=== PATIENT | male | born 1985 | race Caucasian/White ===

== ENCOUNTER 2017-09-04 05:27 | Emergency (ER) | payer MEDICAID ==
[~2017-09-04] VITALS: Ht 165.1 cm; Wt 57.5 kg
[2017-09-04 05:28] VITALS: BP 133/92
[2017-09-04] MEDS ORDERED: KETOROLAC 30 MG/1 ML ONE (05:57)
[2017-09-04] MEDS ORDERED: KETOROLAC 30 MG/1 ML IM ONE (06:00)
[2017-09-04] MEDS ORDERED: BACITRACIN ZINC OINT 500U/GM, 0.9 GM ONE ×2 (06:47→07:29)
== END 2017-09-04 07:35 | disposition home or self-care (01) ==
LOC: ED 06:00
DX: S62.323A Displaced fracture of shaft of third metacarpal bone, left hand, initial encounter for closed fracture (principal); W19.XXXA Unspecified fall, initial encounter; Y93.01 Activity, walking, marching and hiking; Y92.009 Unspecified place in unspecified non-institutional (private) residence as the place of occurrence of the external cause; Y99.8 Other external cause status
CPT/HCPCS: 29125; 73130; 96372; 99284; J1885

== ENCOUNTER 2017-10-20 14:25 | Emergency (ER) | payer MEDICAID ==
[~2017-10-20] VITALS: Ht 165.1 cm; Wt 53.2 kg
[2017-10-20 14:32] VITALS: BP 137/88
[2017-10-20] MEDS ORDERED: KETOROLAC 30 MG/1 ML IM ONE (15:30)
[2017-10-20] MEDS ORDERED: KETOROLAC 30 MG/1 ML ONE (15:38)
== END 2017-10-20 17:45 | disposition home or self-care (01) ==
LOC: ED 16:33
DX: S22.42XA Multiple fractures of ribs, left side, initial encounter for closed fracture (principal); F17.200 Nicotine dependence, unspecified, uncomplicated; Y04.0XXA Assault by unarmed brawl or fight, initial encounter; Y93.89 Activity, other specified; Y92.89 Other specified places as the place of occurrence of the external cause; Y99.8 Other external cause status
CPT/HCPCS: 71101; 93005; 96372; 99284; J1885

== ENCOUNTER 2017-10-23 01:13 | Emergency (ER) | payer MEDICAID ==
[~2017-10-23] VITALS: Ht 165.1 cm; Wt 55.0 kg
[2017-10-23 01:13] VITALS: BP 142/99
[2017-10-23] MEDS ORDERED: LIDOCAINE 1%, 20ML INFIL ONE (02:00)
[2017-10-23] MEDS ORDERED: LIDOCAINE 1%, 10ML ONE (02:19)
== END 2017-10-23 03:49 | disposition home or self-care (01) ==
LOC: ED 01:59
PROC: 0HQ1XZZ Repair Face Skin, External Approach (ICD-10-PCS; principal; 2017-10-23)
DX: S02.2XXA Fracture of nasal bones, initial encounter for closed fracture (principal); S01.81XA Laceration without foreign body of other part of head, initial encounter; S00.03XA Contusion of scalp, initial encounter; J32.9 Chronic sinusitis, unspecified; Y08.89XA Assault by other specified means, initial encounter; Y93.89 Activity, other specified; Y99.8 Other external cause status; Y92.89 Other specified places as the place of occurrence of the external cause
CPT/HCPCS: 12013; 70450; 70486; 99284

== ENCOUNTER 2017-10-29 01:42 | Emergency (ER) | payer MEDICAID | END 2017-10-29 01:54 | disposition left against medical advice (07) | LOC: ED 01:52 | DX: R51 Headache (principal); Z53.21 Procedure and treatment not carried out due to patient leaving prior to being seen by health care provider ==

== ENCOUNTER 2017-11-27 20:12 | Emergency (ER) | payer MEDICAID ==
[~2017-11-27] VITALS: Ht 165.1 cm; Wt 60.0 kg
[2017-11-27] MEDS ORDERED: SODIUM CHLORIDE FLUSH 10ML SYR IVF ONE (21:00)
[2017-11-27] MEDS ORDERED: SODIUM CHLORIDE 0.9% 1,000ML IVBOLUS ONE (21:00)
[2017-11-27 21:17] LABS: BASOPHILS # (AUTO) 0.01 x10^3/uL (0-0.1); BASOPHILS % (AUTO) 0 % (0-1); EOSINOPHILS # (AUTO) 0.01 x10^3/uL (0-0.4); EOSINOPHILS % (AUTO) 0 % (1-7); LYMPHOCYTES # (AUTO) 1.09 x10^3/uL (1-3.4); LYMPHOCYTES % (AUTO) 11 % (22-44); MD NO; MEAN CORPUSCULAR HEMOGLOBIN 28.9 pg (27.5-34.5); MEAN CORPUSCULAR HGB CONC 33.8 g/dL (33.2-36.2); MEAN CORPUSCULAR VOLUME 85.6 fL (81-97); MEAN PLATELET VOLUME 6.5 fL (7.4-10.4); MONOCYTES # (AUTO) 0.52 x10^3/uL (0.2-0.8); MONOCYTES % (AUTO) 5 % (2-9); NEUTROPHILS # (AUTO) 8.39 x10^3/uL (1.8-6.8); NEUTROPHILS % (AUTO) 84 % (42-75); PLATELET COUNT 280 x10^3/uL (130-400); RED BLOOD COUNT 4.03 x10^6/uL (4.38-5.82); RED CELL DISTRIBUTION WIDTH 15.4 % (9.4-14.8)
[2017-11-27 21:28] LABS: ALANINE AMINOTRANSFERASE 44 U/L (12-78); ALBUMIN 3.2 g/dL (3.4-5.0); ANION GAP 9 mmol/L (5-15); CALCIUM 7.2 mg/dL (8.5-10.1); CHLORIDE 107 mmol/L (98-107); CREATININE 0.55 mg/dL (0.7-1.3)
[2017-11-27 21:31] LABS: ALKALINE PHOSPHATASE 116 U/L (45-117); BILIRUBIN,TOTAL 0.3 mg/dL (0.2-1.0); TOTAL PROTEIN 6.5 g/dL (6.4-8.2)
[2017-11-27 22:13] VITALS: BP 107/71
== END 2017-11-27 23:00 | disposition home or self-care (01) ==
LOC: ED 22:04
DX: F10.129 Alcohol abuse with intoxication, unspecified (principal); F19.10 Other psychoactive substance abuse, uncomplicated; F41.9 Anxiety disorder, unspecified
CPT/HCPCS: 36415; 71045; 80053; 80307; 85025; 96360; 96361; 99285; J7030

== ENCOUNTER 2018-03-22 18:26 | Emergency (ER) | payer MEDICAID ==
[~2018-03-22] VITALS: Ht 165.1 cm; Wt 53.3 kg
[2018-03-22 19:22] LABS: MICROSCOPIC INDICATED
[2018-03-22 19:23] LABS: CULTURE INDICATED? YES
[2018-03-22] MEDS ORDERED: HYDROcodone/APAP 5/325 TABLET ONE (19:28)
[2018-03-22] MEDS ORDERED: HYDROcodone/APAP 5/325 TABLET PO ONE (19:30)
[2018-03-22] MEDS ORDERED: AZITHROMYCIN 500 MG TABLET PO ONE (19:30)
[2018-03-22] MEDS ORDERED: CEFTRIAXONE 250 MG IM ONE (19:30)
[2018-03-22] MEDS ORDERED: CEFTRIAXONE 250 MG ONE (19:34)
[2018-03-22] MEDS ORDERED: AZITHROMYCIN 500 MG TABLET ONE (19:34)
[2018-03-22 20:44] VITALS: BP 136/89
== END 2018-03-22 20:48 | disposition home or self-care (01) ==
LOC: ED 20:42
DX: N34.2 Other urethritis (principal); N30.00 Acute cystitis without hematuria
CPT/HCPCS: 81001; 87086; 87491; 87591; 96372; 99284; J0696

== ENCOUNTER 2018-03-25 15:48 | Emergency (ER) | payer MEDICAID ==
[~2018-03-25] VITALS: Ht 165.1 cm; Wt 54.5 kg
[2018-03-25 16:03] VITALS: BP 120/88
== END 2018-03-25 16:14 | disposition home or self-care (01) ==
LOC: ED 16:08
DX: Z76.0 Encounter for issue of repeat prescription (principal)
CPT/HCPCS: 99283

== ENCOUNTER 2018-04-09 22:05 | Emergency (ER) | payer MEDICAID ==
[~2018-04-09] VITALS: Ht 165.1 cm; Wt 53.8 kg
[2018-04-09 22:07] VITALS: BP 138/80
== END 2018-04-10 00:38 | disposition home or self-care (01) ==
LOC: ED 22:50
DX: G89.11 Acute pain due to trauma (principal); R07.81 Pleurodynia; F19.10 Other psychoactive substance abuse, uncomplicated; F15.10 Other stimulant abuse, uncomplicated; F17.200 Nicotine dependence, unspecified, uncomplicated; Y04.8XXA Assault by other bodily force, initial encounter; Y93.89 Activity, other specified; Y99.8 Other external cause status; Y92.410 Unspecified street and highway as the place of occurrence of the external cause
CPT/HCPCS: 71046; 99284

== ENCOUNTER 2018-05-08 13:28 | Emergency (ER) | payer MEDICAID ==
[~2018-05-08] VITALS: Ht 152.4 cm; Wt 60.0 kg
[2018-05-08 13:28] VITALS: BP 133/77
== END 2018-05-08 14:41 | disposition home or self-care (01) ==
LOC: ED 14:35
DX: S01.21XA Laceration without foreign body of nose, initial encounter (principal); X58.XXXA Exposure to other specified factors, initial encounter; Y93.89 Activity, other specified; Y92.410 Unspecified street and highway as the place of occurrence of the external cause; Y99.8 Other external cause status
CPT/HCPCS: 12011; 99283

== ENCOUNTER 2018-05-16 03:30 | Emergency (ER) | payer MEDICAID ==
[~2018-05-16] VITALS: Ht 165.1 cm; Wt 55.0 kg
[2018-05-16] MEDS ORDERED: LORazepam 1MG TABLET ONE (04:29)
[2018-05-16] MEDS ORDERED: LORazepam 1MG TABLET PO ONE (04:30)
[2018-05-16 05:22] VITALS: BP 105/71
== END 2018-05-16 05:25 | disposition home or self-care (01) ==
LOC: ED 04:35
DX: H10.213 Acute toxic conjunctivitis, bilateral (principal)
CPT/HCPCS: 99282

== ENCOUNTER 2018-07-20 06:05 | Emergency (ER) | payer MEDICAID ==
[~2018-07-20] VITALS: Ht 165.1 cm; Wt 57.1 kg
[2018-07-20] MEDS ORDERED: SODIUM CHLORIDE FLUSH 10ML SYR IVF ONE (08:30)
[2018-07-20] MEDS ORDERED: PROPARACAINE OPHTH 0.5%, 15ML ONE (10:41)
[2018-07-20] MEDS ORDERED: FLUORESCEIN/BENOXINATE 5 ML DROPS OP ONE (11:00)
[2018-07-20] MEDS ORDERED: PROPARACAINE OPHTH 0.5%, 15ML EACHEYE ONE (11:00)
[2018-07-20 12:18] VITALS: BP 130/92
== END 2018-07-20 12:20 | disposition home or self-care (01) ==
LOC: ED 11:48
DX: S02.32XA Fracture of orbital floor, left side, initial encounter for closed fracture (principal); S02.40FA Zygomatic fracture, left side, initial encounter for closed fracture; F12.10 Cannabis abuse, uncomplicated; F15.929 Other stimulant use, unspecified with intoxication, unspecified; Z72.9 Problem related to lifestyle, unspecified; F17.210 Nicotine dependence, cigarettes, uncomplicated; Y04.0XXA Assault by unarmed brawl or fight, initial encounter; Y93.89 Activity, other specified; Y92.410 Unspecified street and highway as the place of occurrence of the external cause; Y99.8 Other external cause status
CPT/HCPCS: 70486; 99284

== ENCOUNTER 2018-07-27 05:58 | Emergency (ER) | payer MEDICAID ==
[~2018-07-27] VITALS: Ht 165.1 cm; Wt 58.7 kg
[2018-07-27 06:01] VITALS: BP 141/80
== END 2018-07-27 07:17 | disposition home or self-care (01) ==
LOC: ED 06:23
DX: S02.32XA Fracture of orbital floor, left side, initial encounter for closed fracture (principal); S02.40DA Maxillary fracture, left side, initial encounter for closed fracture; Y08.89XA Assault by other specified means, initial encounter; Y93.89 Activity, other specified; Y92.89 Other specified places as the place of occurrence of the external cause; Y99.8 Other external cause status
CPT/HCPCS: 99282

== ENCOUNTER 2018-12-20 21:51 | Emergency (ER) | payer MEDICAID ==
[~2018-12-20] VITALS: Ht 165.1 cm; Wt 57.2 kg
[2018-12-20 21:54] VITALS: BP 141/99
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
[2018-12-20] MEDS ORDERED: LIDOCAINE-MPF 1%, 5ML ONE (22:10)
--- NOTE | 2018-12-20 22:12 | NUR ---
WOUND IRRIGATED, SUTURE SET UP AT BEDSIDE.
[2018-12-20] MEDS ORDERED: DIPH,PERTUSS(ACELL),TET VAC/PF 0.5 ML IM-VACC ONE ×2 (23:24→23:30)
[2018-12-20] MEDS ORDERED: BACITRACIN ZINC OINT 500U/GM, 0.9 GM ONE (23:24)
--- NOTE | 2018-12-20 23:27 | NUR ---
pt refused teatnus booster, reports having one 3 years ago
[2018-12-20] MEDS ORDERED: LIDOCAINE-MPF 1%, 5ML INFIL ONE (23:30)
== END 2018-12-21 01:10 | disposition home or self-care (01) ==
LOC: ED 12-21 00:03
DX: S02.2XXA Fracture of nasal bones, initial encounter for closed fracture (principal); S01.112A Laceration without foreign body of left eyelid and periocular area, initial encounter; Y00.XXXA Assault by blunt object, initial encounter; Y93.89 Activity, other specified; Y92.410 Unspecified street and highway as the place of occurrence of the external cause; Y99.8 Other external cause status
CPT/HCPCS: 12051; 70486; 99284

== ENCOUNTER 2020-02-13 09:55 | Emergency (ER) | payer MEDICAID, SELFPAY ==
[~2020-02-13] VITALS: Ht 165.1 cm; Wt 59.6 kg
--- NOTE | 2020-02-13 10:01 | NUR ---
EKG AT BEDSIDE
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
[2020-02-13] MEDS ORDERED: ACETAMINOPHEN 500 MG TABLET ONE (10:29)
[2020-02-13] MEDS ORDERED: SODIUM CHLORIDE 0.9% 1,000ML IVBOLUS ONE ×2 (10:30→12:30)
[2020-02-13] MEDS ORDERED: ACETAMINOPHEN 500 MG TABLET PO ONE (10:30)
[2020-02-13] MEDS ORDERED: SODIUM CHLORIDE FLUSH 10ML SYR IVF ONE (10:30)
[2020-02-13 10:39] LABS: BASOPHILS # (AUTO) 0.05 x10^3/uL (0-0.1); BASOPHILS % (AUTO) 0 % (0-1); EOSINOPHILS # (AUTO) 0.02 x10^3/uL (0-0.4); EOSINOPHILS % (AUTO) 0 % (1-7); LYMPHOCYTES # (AUTO) 0.71 x10^3/uL (1-3.4); LYMPHOCYTES % (AUTO) 6 % (22-44); MD NO; MEAN CORPUSCULAR HEMOGLOBIN 29.2 pg (27.5-34.5); MEAN CORPUSCULAR HGB CONC 33.4 g/dL (33.2-36.2); MEAN CORPUSCULAR VOLUME 87.5 fL (81-97); MEAN PLATELET VOLUME 6.3 fL (7.4-10.4); MONOCYTES # (AUTO) 0.65 x10^3/uL (0.2-0.8); MONOCYTES % (AUTO) 6 % (2-9); NEUTROPHILS # (AUTO) 9.75 x10^3/uL (1.8-6.8); NEUTROPHILS % (AUTO) 87 % (42-75); PLATELET COUNT 290 x10^3/uL (130-400); RED BLOOD COUNT 4.71 x10^6/uL (4.38-5.82); RED CELL DISTRIBUTION WIDTH 14.4 % (9.4-14.8)
[2020-02-13 10:52] LABS: ALANINE AMINOTRANSFERASE 19 U/L (12-78); ALBUMIN 3.6 g/dL (3.4-5.0); ANION GAP 7 mmol/L (5-15); CALCIUM 8.5 mg/dL (8.5-10.1); CHLORIDE 100 mmol/L (98-107)
[2020-02-13 10:54] LABS: ALKALINE PHOSPHATASE 95 U/L (45-117); BILIRUBIN,TOTAL 0.8 mg/dL (0.2-1.0); TOTAL PROTEIN 7.4 g/dL (6.4-8.2)
--- NOTE | 2020-02-13 11:27 | NUR ---
PT UP TO URINATE.
[2020-02-13 12:01] LABS: MICROSCOPIC AUTO
[2020-02-13 12:17] LABS: CULTURE INDICATED? NO
[2020-02-13 12:53] VITALS: BP 117/81
== END 2020-02-13 13:29 | disposition home or self-care (01) ==
LOC: ED 10:10
DX: Z20.828 Contact with and (suspected) exposure to other viral communicable diseases (principal); B34.9 Viral infection, unspecified; R00.0 Tachycardia, unspecified
CPT/HCPCS: 36415; 71045; 80053; 81001; 83605; 84145; 85025; 93005; 99285; J7030